=== PATIENT | female | born 1995 | race African-American/Black ===

== ENCOUNTER 2016-11-11 12:08 | Emergency (ER) | payer MEDICAID ==
[2016-04-26 12:32] VITALS: BMI 28.9
[~2016-11-11 12:08] MED LIST: IBUPROFEN600 MG PO; PERCOCET 5-3251 TAB PO
== END 2016-11-11 13:33 | disposition home or self-care (01) ==
LOC: D.ER 12:08
DX: H66.92 Otitis media, unspecified, left ear (principal)

== ENCOUNTER 2018-04-30 21:47 | Emergency (ER) | payer SELFPAY ==
[~2018-04-30] VITALS: Ht 157.5 cm; Wt 56.8 kg
[2018-04-30 21:57] VITALS: Ht 157.5 cm; Wt 56.8 kg
[2018-04-30] MEDS ORDERED: PROVENTIL HFA6.7 GM INH (23:14)
[2018-04-30] MEDS ORDERED: PHENERGAN DM SYR5 ML PO (23:14)
[2018-04-30] MEDS ORDERED: ZPAK PO (23:14)
[2018-04-30 23:57] VITALS: BP 128/86
== END 2018-04-30 23:47 | disposition home or self-care (01) ==
LOC: D.ER 21:47
DX: J06.9 Acute upper respiratory infection, unspecified (principal); J20.9 Acute bronchitis, unspecified; R09.89 Other specified symptoms and signs involving the circulatory and respiratory systems; M79.1 Myalgia; F17.200 Nicotine dependence, unspecified, uncomplicated

== ENCOUNTER 2019-12-25 10:45 | Emergency (ER) | payer MEDICAID ==
[~2019-12-25] VITALS: Ht 157.5 cm; Wt 52.7 kg
[~2019-12-25 10:45] MED LIST changes: +PHENERGAN DM SYR5 ML PO; +PROVENTIL HFA6.7 GM INH; +ZPAK PO
[2019-12-25 10:49] VITALS: Ht 157.5 cm; Wt 52.7 kg
[2019-12-25 12:13] VITALS: BP 120/80
== END 2019-12-25 12:14 | disposition home or self-care (01) ==
LOC: D.ER 10:45
DX: M79.642 Pain in left hand (principal)

== ENCOUNTER 2020-01-28 12:21 | Emergency (ER) | payer MEDICAID ==
[~2020-01-28] VITALS: Ht 157.5 cm; Wt 53.2 kg
[2020-01-28 12:56] VITALS: Ht 157.5 cm; Wt 53.2 kg
[2020-01-28] MEDS ORDERED: NAPROSYN500 MG PO (13:49)
[2020-01-28 14:13] VITALS: BP 108/70
== END 2020-01-28 14:13 | disposition home or self-care (01) ==
LOC: D.ER 12:21
DX: S60.222A Contusion of left hand, initial encounter (principal); S43.402A Unspecified sprain of left shoulder joint, initial encounter; W22.8XXA Striking against or struck by other objects, initial encounter; Y93.9 Activity, unspecified; Y92.9 Unspecified place or not applicable

== ENCOUNTER 2021-03-24 17:40 | Emergency (ER) | payer MEDICAID ==
[~2021-03-24 17:40] MED LIST changes: +KEFLEX500 MG PO; +MACROBID100 MG PO; +NAPROSYN500 MG PO; +ZOFRAN ODT4 MG/UDTAB PO
[2021-03-24 17:42] VITALS: BP 107/77; Ht 157.5 cm
--- NOTE | 2021-03-24 17:54 | NUR ---
THIS NURSE TO ER-ROOM 5. PT LYING SUPINE IN BED. AWAKE. AAO X 3. PT C/O N/V X 3 DAYS. STATES TOOK PHENERGAN LAST AT 1640 TODAY. STATES HASN'T BEEN ABLE TO KEEP ANYTHING DOWN, NOT EVEN WATER. STATES BABY IS ACTIVE. DENIES VAGINAL BLEEDING, LEAKING FLUID OR HAVING CTX'S OR ABDOMINAL PAIN. EFHM PLACED WITH FHR 155-160S. ABDOMEN PALPATES SOFT. PT DENIES ANY RECENT FALL, SEXUAL INTERCOURSE. STATES C/O CONSTIPATION. STATES HAD BM TODAY AT AROUND 1600. STATES STOOL WAS HARD. DENIES PAIN ON URINATION, URINARY FREQUENCY OR URGENCY.
--- NOTE | 2021-03-24 18:27 | NUR ---
FHR BASELINE 145 WITH ACCELS AND MOD VARIABILITY NOTED. CATEGORY I TRACING. IRRITABILITY NOTED ON TRACING. ABDOMEN PALPATES SOFT. PT DENIES HAVING PAIN, TIGHTENING OR CTX'S. [facility] TRACING SENT TO DR COTA TO VIEW.
--- NOTE | 2021-03-24 18:31 | NUR ---
DR COTA STATES PT IS CLEARED BY OB DEPT. PT HAS F/U WITH DR AMES ON 03/28/21. VERBAL LABOR PRECAUTIONS GIVEN TO PT. PT VERBALIZES UNDERSTANDING.
[2021-03-24] MEDS ORDERED: ZOFRAN ODT4 MG/UDTAB PO (20:10)
== END 2021-03-24 21:02 | disposition home or self-care (01) ==
LOC: D.ER 17:40
DX: O21.1 Hyperemesis gravidarum with metabolic disturbance (principal)

== ENCOUNTER 2021-03-28 11:10 | Outpatient (CLI) | payer MEDICAID ==
[2021-03-28] MEDS ORDERED: PHENERGAN25 M1 PO (12:00)
[2021-03-28] MEDS ORDERED: WELLBUTRIN XL150 M1 PO (12:01)
[2021-03-28 12:02] LABS: BASOPHILS 0.3 % (0-2); EOSINOPHILS 0.8 % (0-7); HEMATOCRIT 29.9 % (36.0-48.0); LYMPHOCYTES 11.4 % (15-50); MCH 29.2 pg (26.0-34.0); MCHC 33.6 g/dL (31.0-37.0); MCV 86.9 fL (80.0-100.0); MEAN PLATELET VOLUME 8.5 fL (7.4-10.4); MONOCYTES 7.4 % (2-11); NEUTROPHILS 80.1 % (40-80); PLATELET COUNT 237 10x3/uL (130-400); RBC 3.44 10x6/uL (4.00-5.40); RDW 13.4 % (11.5-14.5)
[2021-03-28 12:19] LABS: ALBUMIN 2.6 g/dL (3.4-5.0); ALKALINE PHOSPHATASE 171 U/L (30-120); ALT (SGPT) 16 U/L (10-68); BILIRUBIN - TOTAL 0.43 mg/dL (0.2-1.3); CALC OSMOLALITY 273 mosm/kg (275-300); CALCIUM 8.2 mg/dL (8.5-10.1); CHLORIDE - SERUM 106 mmol/L (98-107); CREATININE - SERUM 0.5 mg/dL (0.6-1.3); GLUCOSE 72 mg/dL (74-106); POTASSIUM - SERUM 3.7 mmol/L (3.5-5.1); PROTEIN - SERUM 6.4 g/dL (6.4-8.2); SODIUM 139 mmol/L (136-145); UREA NITROGEN 3 mg/dL (7-18); eGFR NON AFRICAN AMERICAN > 90 mL/min (90-120)
[2021-03-28 12:57] LABS: AMORPHOUS SEDIMENT RARE LPF (<FEW); BACTERIA MOD HPF (<MOD); BILIRUBIN NEGATIVE (NEGATIVE); KETONE NEGATIVE mg/dL (< 1+); NITRITE NEGATIVE (NEGATIVE); SQUAMOUS EPITHELIAL 5 HPF (0-4); UROBILINOGEN NORMAL mg/dL (< 2); WHITE CELLS - URINE 19 HPF (0-4)
== END 2021-03-28 15:55 | disposition home or self-care (01) ==
LOC: D.LDO 11:10 → D.LD 11:10 → D.LDO 15:55
PROVIDERS: ATTEND Obstetrics & Gynecology
DX: O35.9XX0 Maternal care for (suspected) fetal abnormality and damage, unspecified, not applicable or unspecified (principal)